=== PATIENT | female | born 1995 | race Caucasian/White ===

== ENCOUNTER → 2018-04-13 | Emergency (ER) | payer SELFPAY ==
[~2018-04-13] VITALS: Ht 149.9 cm; Wt 51.3 kg
[~2018-04-13] MED LIST: SUBOXONE 4 MG-1 EACH SL; VALACYCLOVIR500 MG ORAL
[2018-04-13 22:07] VITALS: BP 102/64
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
== END | disposition left against medical advice (07) ==
LOC: EMR 22:30
DX: R69 Illness, unspecified (principal)

== ENCOUNTER 2018-06-19 21:34 | Emergency (ER) | payer OTHER ==
[~2018-06-19] VITALS: Ht 149.9 cm; Wt 47.6 kg
[2018-06-19 21:30] VITALS: BP 100/71
[2018-06-19] MEDS ORDERED: Ketorolac 60mg Inj IM ONE (21:45)
[2018-06-19] MEDS ORDERED: NAPROXEN500 M2 ORAL (21:48)
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
[2018-06-19 22:05] VITALS: BP 102/70
== END 2018-06-19 22:20 | disposition home or self-care (01) ==
LOC: EDBD 21:34 → EMR 22:18
DX: M54.2 Cervicalgia (principal); M54.9 Dorsalgia, unspecified; M41.9 Scoliosis, unspecified
CPT/HCPCS: 96372; 99283